=== PATIENT | female | born 1945 | race Caucasian/White ===

== ENCOUNTER → 2017-01-30 | Outpatient (CLI) | payer OTHER, MEDICARE | LOC: CIMAGING 07:09 | PROVIDERS: ATTEND Internal Medicine | DX: K85.00 Idiopathic acute pancreatitis without necrosis or infection (principal) | CPT/HCPCS: 76700-PO ==

== ENCOUNTER → 2017-03-31 | Outpatient (CLI) | payer OTHER, MEDICARE | LOC: FIMAGING 11:40 | PROVIDERS: ATTEND Obstetrics & Gynecology Gynecology | DX: Z12.31 Encounter for screening mammogram for malignant neoplasm of breast (principal) | CPT/HCPCS: G0202 ==

== ENCOUNTER → 2018-02-24 | Outpatient (CLI) | payer OTHER, MEDICARE | LOC: BHFA 11:30 | PROVIDERS: ATTEND Internal Medicine Cardiovascular Disease | DX: I34.0 Nonrheumatic mitral (valve) insufficiency (principal) ==

== ENCOUNTER → 2018-04-20 | Outpatient (CLI) | payer OTHER, MEDICARE | LOC: FIMAGING 09:57 | PROVIDERS: ATTEND Internal Medicine | DX: Z12.31 Encounter for screening mammogram for malignant neoplasm of breast (principal) ==